=== PATIENT | female | born 1980 | race Asian ===

== ENCOUNTER 2025-01-17 12:39 | Emergency (ER) | payer OTHER, SELFPAY ==
[2025-01-17 12:40] VITALS: BP 112/77; PULSE 73; RESP 14; TEMP 36.6; O2SAT 98; BMI 24.5
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
[2025-01-17 13:11] VITALS: TEMP 36.6
[2025-01-17 13:15] LABS: Absolute Lymphocyte Count 1.51 X10^3/uL (0.83-4.51); Absolute Neutrophil Count 7.9 X10^3/uL (2.0-7.7); Basophil# 0.02 X10^3/uL; Basophil% 0.2 % (0-1); Eosinophil# 0.07 X10^3/uL; Eosinophils% 0.7 % (0-5); Hematocrit 38.9 % (37-47); Hemoglobin 12.7 g/dL (12.0-15.0); Lymphocyte # 1.51 X10^3/ul (0.83-4.51); Lymphocyte % 15.1 % (19-41); Mean Corp Hgb Conc 32.6 g/dL (32-36); Mean Corpuscular Hgb 28.5 pg (27.0-32.0); Mean Corpuscular Volume 87.4 fL (81-99); Mean Platelet Vol. 10.4 fl (6.2-12.0); Monocyte# 0.47 X10^3/uL; Monocyte% 4.7 % (0-10); NRBC Flagged by Analyzer 0 % (0-5); Neutrophil # 7.86 X10^3/uL (2.7-7.7); Neutrophil % 78.9 % (47-70); Platelet Count 250 K/mm3 (150-450); RBC Distribution Width CV 13.7 % (11.6-14.6); RBC Distribution Width SD 43.8 fl (35.1-43.9); Red Blood Count 4.45 M/mm3 (4.2-5.4)
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
[2025-01-17 13:32] LABS: ALB/GLOB Ratio 1.5 RATIO (0.9-2.4); AST(SGOT) 16 U/L (<=31); Alanine Aminotransfer ALT/SGPT 12 U/L (<=34); Albumin, Serum 4.5 g/dL (3.5-5.0); Alkaline Phosphatase 59 U/L (35-104); Anion Gap 9 (5-15); BUN 13 mg/dL (4-19); BUN/Creat Ratio 21.3 RATIO (10-20); Calcium,Total 9.1 mg/dL (7.6-11.0); Chloride 105 mmol/L (98-108); EST Glomerular Filtration Rate 114 (>60); Estimated Creatinine Clearance 108.79 ml/min (50-250); Glucose 105 mg/dL (70-99); Lipase 25 U/L (13-75); Potassium 3.7 mmol/L (3.3-5.1); Protein, Total 7.5 g/dL (5.9-8.4); Sodium Level 137 mmol/L (133-145); Total Bilirubin 0.69 mg/dL (0.00-1.30)
[2025-01-17 13:35] LABS: Internal QC Validated? YES +Cl - CLEAR BKGD; Pregnancy, Serum, hCG Quali. NEGATIVE Negative
--- NOTE | 2025-01-17 14:29 | EKG12_ITS ---
Test Reason : GENERAL Blood Pressure : */* mmHG Vent. Rate : 78 BPM Atrial Rate : 78 BPM P-R Int : 164 ms QRS Dur : 68 ms QT Int : 388 ms P-R-T Axes : 76 57 50 degrees QTcB Int : 442 ms Normal sinus rhythm Normal ECG Confirmed by ISAI RASHID, LY ([id number]), general expeditor ROBIN CONNOR ([id number]) on 01/20/2025 8:47:32 AM Referred By: DAYRON Confirmed By: LY ALEX MD
[2025-01-17 15:13] VITALS: BP 114/87; PULSE 79; RESP 18; TEMP 36.8; O2SAT 97
== END 2025-01-17 15:16 | disposition home or self-care (01) ==
PROVIDERS: Emergency Provider Emergency Medicine; Visit Provider Emergency Medicine
DX: S39.91XA Unspecified injury of abdomen, initial encounter (principal); N83.201 Unspecified ovarian cyst, right side; V89.2XXA Person injured in unspecified motor-vehicle accident, traffic, initial encounter
CPT/HCPCS: 74177; 80053; 83690; 84703; 85025; 93005; 99283; A4216